=== PATIENT | male | born 1995 | race Caucasian/White ===

== ENCOUNTER 2016-10-12 08:49 | Emergency (ER) | payer OTHER ==
[~2016-10-12] VITALS: Ht 172.7 cm; Wt 68.0 kg
[~2016-10-12 08:49] MED LIST: CLIN300C86 PO; SULF1TAB24 PO
[2016-10-12 09:11] VITALS: BP 106/56
[2016-10-12] MEDS ORDERED: MUPI15CR TP (10:04)
[2016-10-12] MEDS ORDERED: CLIN-44 PO (10:04)
--- NOTE | 2016-10-12 10:04 | PHYS DOC ---
Past Medical History Past Medical History: Asthma Additional Past Medical Histor: MRSA Past Surgical History: No Surgical History Additional Information: 1 ppd Alcohol Use: Rarely Drug Use: None Adult General Chief Complaint Chief Complaint: FINGER INJURY HPI HPI Patient is a 21 year old male with history of cellulitis to the left middle finger who presents today with left middle finger pain and swelling that began 3 days ago. Patient denies any fever. Patient state he has tried taking Bactrim and amoxicillin that he had from a previous prescription with no improvement to the infection. Review of Systems Review of Systems Constitutional: Denies fever or chills [] Eyes: Denies change in visual acuity, redness, or eye pain [] HENT: Denies nasal congestion or sore throat [] Musculoskeletal: Denies back pain or joint pain [] Integument: Left middle finger infection Neurologic: Denies headache, focal weakness or sensory changes [] Endocrine: Denies polyuria or polydipsia [] Allergies Allergies Allergies Coded Allergies Type Severity Reaction Last Updated Verified banana Allergy Intermediate itching 10/12/16 Yes Physical Exam Physical Exam Constitutional: Well developed, well nourished, no acute distress, non-toxic appearance. [] HENT: Normocephalic, atraumatic, bilateral external ears normal, oropharynx moist, no oral exudates, nose normal. [] Skin: Left middle finger mid finger, dorsal aspect with an area of cellulitis approximately 2 x 2 centimeters. The area is warm to touch. There is no streaking from the area. There is no fluctuance to the area. Back: No tenderness, no CVA tenderness. [] Extremities: No tenderness, no cyanosis, no clubbing, ROM intact, no edema. [] Neurologic: Alert and oriented X 3, normal motor function, normal sensory function, no focal deficits noted. [] Psychologic: Affect normal, judgement normal, mood normal. [] Current Patient Data Vital Signs Vital Signs Date Time Temp Pulse Resp B/P Pulse Ox O2 Delivery O2 Flow Rate FiO2 10/12/16 09:11 97.9 85 16 100 Room Air 97.9 EKG EKG [] Radiology/Procedures Radiology/Procedures [] Course & Med Decision Making Course & Med Decision Making Pertinent Labs and Imaging studies reviewed. (See chart for details) Patient has cellulitis of the left middle finger. Discharged with clindamycin for 10 days. Discharged with Bactroban cream. Tetanus up-to-date. Encouraged her to complete his antibiotics. Follow-up with his own primary care doctor in one week. Adonis Disclaimer Adonis Disclaimer This electronic medical record was generated, in whole or in part, using a voice recognition dictation system. Departure Departure Impression: Primary Impression: Cellulitis of finger of left hand Disposition: HOME, SELF-CARE Condition: STABLE Referrals: MAXIMO CAT MD (PCP) Follow-up with your doctor in 1-2 weeks Patient Instructions: Cellulitis Additional Instructions: You were seen for cellulitis of the left middle finger. Please keep the area clean and dry. Complete your antibiotics. Follow-up with your doctor in one week. Come back to the ED if symptoms worsen. Scripts Mupirocin Calcium (Bactroban Cream)15 Gm Cream..g.1 [place] TP TID #30 GM Prov:SANDY VALENTIN APRN 10/12/16 Clindamycin Hcl 150 Mg Capsule3 Cap PO TID #90 CAP Prov:SANDY VALENTIN APRN 10/12/16 SANDY VALENTIN APRN Oct 12, 2016 10:04
== END 2016-10-12 10:21 | disposition home or self-care (01) ==
LOC: ER 08:49
DX: L03.012 Cellulitis of left finger (principal); J45.909 Unspecified asthma, uncomplicated; F17.200 Nicotine dependence, unspecified, uncomplicated; Z86.14 Personal history of Methicillin resistant Staphylococcus aureus infection; Z91.018 Allergy to other foods
CPT/HCPCS: 99283